=== PATIENT | female | born 1940 | race Asian ===

== ENCOUNTER 2019-07-16 04:33 | Inpatient (IN) | payer MEDICARE, MEDICAID ==
[2019-07-16] VITALS (7 sets, daily range): BP systolic 128–147; BP diastolic 60–96
[~2019-07-16] VITALS: Ht 170.2 cm; Wt 71.3 kg
[2019-07-16 05:35] LABS: BASOPHILS % 0.6 % (0.0-2.0); EOSINOPHILS % 1.4 % (0.0-5.0); HEMATOCRIT. 41.4 % (36.0-48.0); MEAN CORPUSCULAR HEMOGLOBIN 33.4 pg (28.0-32.0); MEAN CORPUSCULAR VOLUME 98.6 fL (81.0-99.0); MEAN PLATELET VOLUME 10.2 fl (7.4-10.4); MONOCYTES % 4.5 % (2.0-8.0); NEUTROPHILS % 69.5 % (40.0-76.0); PLATELET 145 x1000/uL (130-400); RED CELL DISTRIBUTION WIDTH 13.7 % (11.6-14.6)
[2019-07-16 05:41] LABS: CHLORIDE 108 mEq/L (98-107)
[2019-07-16 06:41] LABS: BG BASE EXCESS 1.8 mmol/L (-2.0-2.0); BG CARBOXYHEMOGLOBIN 0.8 % (0.5-1.5); BG FRACTION INSPIRED OXYGEN 21; BG HCO3 ACT 26.8 mmol/L (22.0-26.0); BG METHEMOGLOBIN 0.2 % (0.0-1.5); BG OXYGEN SATURATION 92.9 % (92.0-98.5); BG PCO2 43.3 mmHg (35.0-45.0); BG PH 7.409 (7.350-7.450); BG PO2 64.5 mmHg (75.0-100.0); BG SAMPLE SITE RIGHT RADIAL; BG TOTAL HEMOGLOBIN 13.8 g/dL (12.0-18.0); BG VENT MODE ROOM AIR
[2019-07-16] MEDS ORDERED: LEVOFLOXACIN 750MG PREMIX 150 ML IV ONE (07:15)
[2019-07-16] MEDS ORDERED: DIPHENHYDRAMINE 50MG/ML VIAL IV ONE (08:15)
[2019-07-16] MEDS ORDERED: AZITHROMYCIN 500 MG in DEXT 5% WATER 250 ML IV SCH ×2 (08:30→10:00)
[2019-07-16 09:18] LABS: CLARITY URINE CLEAR (CLEAR); COLOR URINE YELLOW (YELLOW); KETONES URINE NEGATIVE (NEGATIVE); LEUKOCYTE ESTERASE URINE NEGATIVE (NEGATIVE); NITRITE URINE POSITIVE (NEGATIVE); OCCULT BLOOD URINE NEGATIVE (NEGATIVE); PH URINE 6.5 (4.5-8.0); PROTEIN URINE NEGATIVE (NEGATIVE); SPECIFIC GRAVITY URINE 1.017 (1.005-1.030); UROBILINOGEN URINE 0.2 E.U./dL (0.2-1.0)
[2019-07-16] MEDS ORDERED: GUAIFENESIN 200MG/10ML SUGAR FREE UDC PO PRN (10:00)
[2019-07-16] MEDS ORDERED: CLONIDINE 0.1MG TABLET PO PRN (10:00)
[2019-07-16] MEDS ORDERED: ACETAMINOPHEN 325MG TABLET PO PRN (10:00)
[2019-07-16] MEDS ORDERED: ONDANSETRON HCL 4MG/2ML INJ IV PRN (10:00)
[2019-07-16] MEDS ORDERED: CEFTRIAXONE 1 G PREMIX 50 ML IV SCH (10:00)
[2019-07-16] MEDS ORDERED: ZOLPIDEM TARTRATE 5MG TABLET PO PRN (10:00)
[2019-07-16] MEDS ORDERED: IPRATROPIUM/ALBUTEROL 0.5-3(2.5)MG/3ML NEB NEB PRN (10:00)
[2019-07-16] MEDS ORDERED: LORAZEPAM 0.5MG TABLET PO PRN (10:00)
[2019-07-16] MEDS ORDERED: MAGNESIUM/ALUMINUM HYDROXIDE/SIMETHICONE 30ML UDC PO PRN (10:00)
[2019-07-16] MEDS ORDERED: DOCUSATE SODIUM 100MG CAPSULE PO PRN (10:00)
[2019-07-16] MEDS ORDERED: TRAMADOL 50MG TABLET PO PRN (11:43)
[2019-07-16] MEDS ORDERED: DIPHENHYDRAMINE 50MG/ML VIAL IV PRN (12:15)
[2019-07-16] MEDS: ASPIRIN 325MG EC TABLET PO SCH (13:26)
[2019-07-16] MEDS: GUAIFENESIN/DM 600MG/30MG ER TAB 12HR PO SCH ×2 (13:26→21:00)
[2019-07-16] MEDS: FUROSEMIDE 40MG/4ML VIAL IVP SCH ×2 (13:26→17:59)
[2019-07-16] MEDS: FAMOTIDINE 40MG TABLET PO SCH (13:27)
[2019-07-16] MEDS: ASCORBIC ACID 500 MG TABLET PO SCH ×2 (13:27→21:00)
[2019-07-16] MEDS: SPIRONOLACTONE 25MG TABLET PO SCH ×2 (13:27→21:00)
[2019-07-16] MEDS: ZINC SULFATE 220 MG ( 50 ) CAPSULE PO SCH (13:27)
[2019-07-16] MEDS: ENOXAPARIN 40MG/0.4ML SYR SUBCUT SCH (13:28)
[2019-07-16] MEDS: METHYLPREDNISOLONE SOD SUCC 125 MG/2 ML VIAL IV SCH ×2 (13:28→22:00)
[2019-07-16 14:43] LABS: OPIATES URINE SCREEN NEGATIVE (NEGATIVE)
[2019-07-16 14:46] LABS: CANNABINOID URINE SCREEN NEGATIVE (NEGATIVE); PHENCYCLIDINE URINE SCREEN NEGATIVE (NEGATIVE)
[2019-07-16 14:47] LABS: *COCAINE SCREEN URINE NEGATIVE (NEGATIVE)
[2019-07-16 14:48] LABS: METHADONE URINE SCREEN NEGATIVE (NEGATIVE)
[2019-07-16 14:54] LABS: *BARBITURATES SCREEN URINE NEGATIVE (NEGATIVE); *BENZODIAZEPINES SCREEN URINE NEGATIVE (NEGATIVE)
[2019-07-16 14:55] LABS: *AMPHETAMINES SCREEN URINE NEGATIVE (NEGATIVE)
[2019-07-16 15:16] LABS: CREATINE KINASE MB FRACTION 5.2 ng/mL (0.5-3.6)
[2019-07-16] MEDS: CEFTRIAXONE 1 G PREMIX 50 ML IV SCH (15:16)
[2019-07-16] MEDS: IPRATROPIUM/ALBUTEROL 0.5-3(2.5)MG/3ML NEB HHN SCH ×2 (16:14→21:23)
[2019-07-16] MEDS ORDERED: FAMOTIDINE 20MG TABLET PO SCH (21:00)
[2019-07-17] VITALS (12 sets, daily range): BP systolic 106–164; BP diastolic 35–102
[2019-07-17] MEDS: IPRATROPIUM/ALBUTEROL 0.5-3(2.5)MG/3ML NEB HHN SCH ×6 (00:49→21:05)
[2019-07-17] MEDS: FUROSEMIDE 40MG/4ML VIAL IVP SCH ×5 (06:25→17:26)
[2019-07-17] MEDS: METHYLPREDNISOLONE SOD SUCC 125 MG/2 ML VIAL IV SCH ×3 (06:33→22:02)
[2019-07-17 07:53] LABS: CREATINE KINASE 79 IU/L (26-192)
[2019-07-17 07:56] LABS: CREATINE KINASE MB FRACTION 2.8 ng/mL (0.5-3.6)
[2019-07-17] MEDS: ASCORBIC ACID 500 MG TABLET PO SCH ×2 (08:07→22:00)
[2019-07-17] MEDS: GUAIFENESIN/DM 600MG/30MG ER TAB 12HR PO SCH ×2 (08:07→22:00)
[2019-07-17] MEDS: SPIRONOLACTONE 25MG TABLET PO SCH ×2 (08:07→22:01)
[2019-07-17] MEDS: AZITHROMYCIN 500 MG in DEXT 5% WATER 250 ML IV SCH (08:07)
[2019-07-17] MEDS: FAMOTIDINE 40MG TABLET PO SCH (08:07)
[2019-07-17] MEDS: ZINC SULFATE 220 MG ( 50 ) CAPSULE PO SCH (08:07)
[2019-07-17] MEDS: ASPIRIN 325MG EC TABLET PO SCH (08:07)
[2019-07-17] MEDS: ENOXAPARIN 40MG/0.4ML SYR SUBCUT SCH (08:10)
[2019-07-17] MEDS: CEFTRIAXONE 1 G PREMIX 50 ML IV SCH (11:16)
[2019-07-18] VITALS (11 sets, daily range): BP systolic 123–167; BP diastolic 64–97
[2019-07-18] MEDS: IPRATROPIUM/ALBUTEROL 0.5-3(2.5)MG/3ML NEB HHN SCH ×4 (01:09→22:05)
[2019-07-18] MEDS: METHYLPREDNISOLONE SOD SUCC 125 MG/2 ML VIAL IV SCH ×3 (05:59→22:05)
[2019-07-18] MEDS: FUROSEMIDE 40MG/4ML VIAL IVP SCH ×2 (06:02→17:32)
[2019-07-18] MEDS: ASCORBIC ACID 500 MG TABLET PO SCH ×2 (08:52→22:05)
[2019-07-18] MEDS: ASPIRIN 325MG EC TABLET PO SCH (08:52)
[2019-07-18] MEDS: GUAIFENESIN/DM 600MG/30MG ER TAB 12HR PO SCH ×2 (08:52→22:05)
[2019-07-18] MEDS: ZINC SULFATE 220 MG ( 50 ) CAPSULE PO SCH (08:52)
[2019-07-18] MEDS: AZITHROMYCIN 500 MG in DEXT 5% WATER 250 ML IV SCH (08:53)
[2019-07-18] MEDS: SPIRONOLACTONE 25MG TABLET PO SCH ×2 (08:53→22:06)
[2019-07-18] MEDS: FAMOTIDINE 40MG TABLET PO SCH (08:53)
[2019-07-18] MEDS: ENOXAPARIN 40MG/0.4ML SYR SUBCUT SCH (08:57)
[2019-07-18] MEDS: CEFTRIAXONE 1 G PREMIX 50 ML IV SCH (10:06)
[2019-07-19] VITALS (8 sets, daily range): BP systolic 114–153; BP diastolic 58–92
[2019-07-19] MEDS: IPRATROPIUM/ALBUTEROL 0.5-3(2.5)MG/3ML NEB HHN SCH ×3 (01:30→09:06)
[2019-07-19] MEDS: FUROSEMIDE 40MG/4ML VIAL IVP SCH (05:01)
[2019-07-19] MEDS: METHYLPREDNISOLONE SOD SUCC 125 MG/2 ML VIAL IV SCH ×2 (05:01→14:23)
[2019-07-19] MEDS: ZINC SULFATE 220 MG ( 50 ) CAPSULE PO SCH (08:30)
[2019-07-19] MEDS: SPIRONOLACTONE 25MG TABLET PO SCH (08:30)
[2019-07-19] MEDS: GUAIFENESIN/DM 600MG/30MG ER TAB 12HR PO SCH (08:30)
[2019-07-19] MEDS: ASCORBIC ACID 500 MG TABLET PO SCH (08:30)
[2019-07-19] MEDS: FAMOTIDINE 40MG TABLET PO SCH (08:31)
[2019-07-19] MEDS: ENOXAPARIN 40MG/0.4ML SYR SUBCUT SCH (08:31)
[2019-07-19] MEDS: ASPIRIN 325MG EC TABLET PO SCH (08:31)
[2019-07-19] MEDS: CEFTRIAXONE 1 G PREMIX 50 ML IV SCH (09:23)
[2019-07-19] MEDS: AZITHROMYCIN 500 MG in DEXT 5% WATER 250 ML IV SCH (09:59)
== END 2019-07-19 17:10 | disposition home or self-care (01) | DRG 193 ==
LOC: ER 05:02 → 5EST 08:18 → SUPCPDRO 08:46 → ENRESERV 10:54
PROVIDERS: ADMIT Internal Medicine; ATTEND Internal Medicine
DX: J18.9 Pneumonia, unspecified organism (principal); J96.01 Acute respiratory failure with hypoxia; J44.0 Chronic obstructive pulmonary disease with (acute) lower respiratory infection; I50.40 Unspecified combined systolic (congestive) and diastolic (congestive) heart failure; I11.0 Hypertensive heart disease with heart failure; Z86.73 Personal history of transient ischemic attack (TIA), and cerebral infarction without residual deficits; Z79.899 Other long term (current) drug therapy; Z88.0 Allergy status to penicillin; Z88.1 Allergy status to other antibiotic agents; Z88.2 Allergy status to sulfonamides
CPT/HCPCS: 36415; 36600; 71045; 80053; 80061; 80305; 81003; 82375; 82550; 82553; 82805; 83036; 83880; 84484; 85025; 87804; 93005; 93306; 93970; 94640; 96365; 96368; 96375; 99291; J0456; J0696; J1200; J1650; J1940; J1956; J2930; J7060; J7620

== ENCOUNTER → 2019-08-27 | Emergency (ER) | payer MEDICARE, MEDICAID ==
[~2019-08-27] VITALS: Ht 165.1 cm; Wt 65.0 kg
[~2019-08-27] MED LIST: ASPI-1158 PO; FURO40TA5 PO; SILD20TA PO; SPIR25TA6 PO
[2019-08-27 08:04] VITALS: BP 148/91
== END | disposition left against medical advice (07) ==
LOC: ER 07:52
DX: Z46.82 Encounter for fitting and adjustment of non-vascular catheter (principal); I10 Essential (primary) hypertension; E78.00 Pure hypercholesterolemia, unspecified; Z88.0 Allergy status to penicillin; Z88.2 Allergy status to sulfonamides; Z88.1 Allergy status to other antibiotic agents; Z79.82 Long term (current) use of aspirin; Z86.73 Personal history of transient ischemic attack (TIA), and cerebral infarction without residual deficits
CPT/HCPCS: 99281